=== PATIENT | female | born 1970 | race African-American/Black ===

== ENCOUNTER 2019-12-11 21:26 | Emergency (ER) | payer SELFPAY ==
[~2019-12-11] VITALS: Ht 177.8 cm; Wt 111.6 kg
[~2019-12-11 21:26] MED LIST: ALB MDI; NO ACTIVE MEDS; WARF10TA21 PO
[2019-12-11] MEDS ORDERED: ACETAMINOPHEN 500MG TABLET PO ONE (23:15)
[2019-12-12 00:15] VITALS: BP 147/82
== END 2019-12-12 01:40 | disposition home or self-care (01) ==
LOC: ER 21:26
DX: S09.8XXA Other specified injuries of head, initial encounter (principal); W18.39XA Other fall on same level, initial encounter; Y93.89 Activity, other specified; Y92.89 Other specified places as the place of occurrence of the external cause; Y99.8 Other external cause status; Z90.49 Acquired absence of other specified parts of digestive tract; Z98.890 Other specified postprocedural states; Z79.899 Other long term (current) drug therapy
CPT/HCPCS: 99282

== ENCOUNTER 2021-07-31 20:24 | Emergency (ER) | payer OTHER ==
[~2021-07-31] VITALS: Ht 177.8 cm; Wt 118.0 kg
[2021-07-31 20:32] VITALS: BP 141/88
[2021-07-31] MEDS ORDERED: P50 PO (21:48)
[2021-07-31] MEDS ORDERED: FLUT12AE3 INH (21:48)
== END 2021-07-31 22:28 | disposition home or self-care (01) ==
LOC: ER 20:24
DX: R06.02 Shortness of breath (principal); R51.9 Headache, unspecified; R50.9 Fever, unspecified
CPT/HCPCS: 99282